=== PATIENT | male | born 1950 | race Caucasian/White ===

== ENCOUNTER 2017-06-04 02:06 | Emergency (ER) | payer OTHER ==
[~2017-06-04 02:06] MED LIST: AMPICILLIN-SULB3 GM IV; ASPIR-LOW81 MG PO; ASPIRIN81 M2 PO; AUGMENTIN 875875 MG PO; B-50 COMPLEX1 EAC1 PO; BIOTIN1 M1 PO; COLACE100 MG PO; CYCLOBENZAPRINE10 MG PO; CYMBALTA20 MG PO; DIAZEPAM 10 MG10 M2 PO; DILAUDID8 MG PO; ENOXAPARIN40 MG/0.1 SUBQ; FISH OIL 1,0001 EAC5 PO; IPRAT-ALBUT 0.5-3 ML IH; LOPRESSOR100 MG PO; MAGNESIUM250 M1 PO; MUCINEX TA600 MG/TA2 PO; NORCO 5-325 TA1 EACH PO; OMEPRAZOLE 20 M20 M1 PO; PANTOPRAZOLE SO40 M1 PO; TESSALON PERLE100 MG PO; TOPROL XL100 MG PO; TRAZODONE HCL PO; TYLENOL325 MG PO; VITAMIN D35000 UNI1 PO; ZETIA10 MG PO
[2017-06-04 03:13] LABS: HEMOGLOBIN 17.1 gm/dL (14.0-18.0); MCH 31.8 pg (26.0-34.0); MCHC 33.6 g/dL (28.0-37.0); MCV 94.8 fL (80.0-100.0); PLATELET COUNT 276 thou/uL (150-400); RBC 5.38 mil/uL (4.50-6.00); WBC 19.9 thou/uL (4.0-11.0)
[2017-06-04 03:15] LABS: MANUAL DIFF YES
[2017-06-04 03:17] LABS: CALCIUM 9.4 mg/dL (8.5-10.1); CREATININE 0.9 mg/dL (0.7-1.3); POTASSIUM 3.8 mmol/L (3.5-5.1)
[2017-06-04 03:23] LABS: ALBUMIN 3.9 g/dL (3.4-5.0); TOTAL BILIRUBIN 0.3 mg/dL (<0.1-1.0); TOTAL PROTEIN 7.1 g/dL (6.4-8.2)
[2017-06-04] MEDS ORDERED: PHENERGAN 25 MG25 M1 PO (04:09)
[2017-06-04 04:11] LABS: URINE BILIRUBIN NEGATIVE (Negative); URINE BLOOD 1+ (Negative); URINE COLOR YELLOW; URINE GLUCOSE-RANDOM* NEGATIVE (Negative); URINE KETONES NEGATIVE (Negative); URINE NITRITE NEGATIVE (Negative); URINE PROTEIN (DIPSTICK) NEGATIVE (Negative); URINE UROBILINOGEN 0.2 E.U./dl (0.2-1.0)
[2017-06-04 04:27] LABS: BACTERIA None Seen /HPF (None Seen); CASTS None Seen /LPF (None Seen); CRYSTALS None Seen /LPF (None Seen); SQUAMOUS None Seen /LPF (0-3); URINE RBC 0-2 Rare /HPF (0-2); URINE WBC None Seen /HPF (0-5)
[2017-06-04 04:30] VITALS: BP 157/96
[2017-06-04 04:46] LABS: ABSOLUTE NEUTROPHILS 7.4 thou/uL (1.4-8.2); ATYPICAL LYMPHS 5 %; TOTAL CELL COUNT 100
[2017-06-13] MEDS ORDERED: ROXICODONE15 M1 PO (12:39)
[2017-06-13] MEDS ORDERED: DIAZEPAM 10 MG10 M1 PO (12:40)
[2017-06-13] MEDS ORDERED: FLEXERIL PO (12:40)
[2017-06-13] MEDS ORDERED: VITAMIN D2000 UNIT PO (12:41)
[2017-06-13] MEDS ORDERED: REMERON15 MG PO (12:41)
[2017-06-13] MEDS ORDERED: FISH OIL 1,001000 M2 PO (12:41)
[2017-06-13] MEDS ORDERED: CELEBREX100 MG/1 C PO (12:42)
[2017-06-13] MEDS ORDERED: LOPRESSOR100 M1 PO (12:42)
[2017-06-13] MEDS ORDERED: NITROGLYCERIN0.4 MG SUBLING (12:43)
[2017-06-13] MEDS ORDERED: NEXIUM20 MG PO (12:43)
[2017-06-13] MEDS ORDERED: BIOTIN1 M1 PO (12:43)
[2017-06-13] MEDS ORDERED: MAGNESIUM SULF100 MG PO (12:44)
[2017-06-13] MEDS ORDERED: ATORVASTATIN CA40 MG PO (12:45)
== END 2017-06-04 07:58 | disposition home or self-care (01) ==
LOC: ER 02:06
PROVIDERS: Emergency Medicine
DX: R10.9 Unspecified abdominal pain (principal); G89.29 Other chronic pain; M19.90 Unspecified osteoarthritis, unspecified site; I10 Essential (primary) hypertension; I25.2 Old myocardial infarction; F10.99 Alcohol use, unspecified with unspecified alcohol-induced disorder; Z95.5 Presence of coronary angioplasty implant and graft; Z98.890 Other specified postprocedural states; Z88.5 Allergy status to narcotic agent; Z88.8 Allergy status to other drugs, medicaments and biological substances

== ENCOUNTER → 2017-06-13 | Outpatient (CLI) | payer OTHER ==
[~2017-06-13] VITALS: Ht 182.9 cm; Wt 95.3 kg
[~2017-06-13] MED LIST changes: +ATORVASTATIN CA40 MG PO; +CELEBREX100 MG/1 C PO; +DIAZEPAM 10 MG10 M1 PO; +FISH OIL 1,001000 M2 PO; +FLEXERIL PO; +LOPRESSOR100 M1 PO; +MAGNESIUM SULF100 MG PO; +NEXIUM20 MG PO; +NITROGLYCERIN0.4 MG SUBLING; +PHENERGAN 25 MG25 M1 PO; +REMERON15 MG PO; +ROXICODONE15 M1 PO; +VITAMIN D2000 UNIT PO
--- NOTE | ~2017-06-13 | HPC ---
[facility] [place] [address] PAIN MANAGEMENT CONSULTATION Name: RUBEN BEAVER Room #: REG [facility].#: [id number] Admission: 06/13/17 Attend Phys: Waqar Carr DO Discharge: Date of : 50 Report #: [id number] THIS REPORT FOR: //name// CC: Holly Ontiveros DATE OF SERVICE: 06/13/2017 HISTORY OF PRESENT ILLNESS: The patient is a very unfortunate 66-year-old gentleman seen in consultation at the request of Dr. Duarte for assistance with direction on a chronic opiate habituation and chronic pain concerns. The patient presents to pain clinic today stating it hurts "everywhere." When pressed, he says his primary pain is in his back, his hips and the front of his legs. He rates his pain a "20" on a 0-10 visual analog scale. States he has continuous, constant, burning, shooting pain. Pain is exacerbated with any and all movement. The only thing that makes it better is "hydromorphone." He had been habituated to high dose narcotics, had been on hydromorphone 8 mg 8 a day for at least [address] Duarte wisely rotated the patient to oxycodone 15 mg 6 a day, he picked that prescription up on 05/22/2017; was limited to 6 a day. This 90 mg oxycodone prescription is equivalent to 135 mg of morphine. I discussed at length with the patient today the physiologic reasons (opiate-induced hyperalgesia and lack of clinical evidenced base medicine showing improved function on higher doses of narcotic) for a weaning opiates to a more reasonable dose. I suggested that it would be hankins to continue oxycodone 15 mg 6 a day through this particular prescription; when it is time to renew his prescription on or around 06/22, I would suggest renewing oxycodone 15 mg at 5 tablets a day, i.e., 150 tablets, similarly at 30 days, around mid July, I would drop to our "goal" dose of oxycodone 15 mg 4 tablets a day. REVIEW OF SYSTEMS: Complete review of systems attached to chart and gone over with the patient. He is single. He states he does not use nicotine products and he drinks "2 beers a day." He has a history of hypertension for which he uses metoprolol. History of coronary artery disease status post endovascular stents in 2001 and again in 2005. He is on no blood thinners at this point. He does take Nexium for gastroesophageal reflux and atorvastatin ostensibly for dyslipidemia. He has chronic anxiety for which he uses mirtazapine and Valium averaging 10 mg a day. States he uses Flexeril 10 mg 2 tablets at bedtime for sleep and he recently started on Celebrex 100 mg a day. I think Celebrex is a reasonable drug for some chronic migratory arthralgias, though there is obviously caution for [address] [address] PAIN MANAGEMENT CONSULTATION Name: RUBEN BEAVER Room #: REG BENJIE Fernandez#: [id number] Admission: 06/13/17 Attend Phys: Waqar Carr DO Discharge: Date of : 50 Report #: [id number] chronic current use of any NSAID and patients with diagnosis of coronary artery disease. The patient prior had a lumbar laminectomy in 1988 in [place] for "sciatic" type symptoms. The patient notes he did have good resolution of his radicular symptoms. In fact he is not noting any significant radicular symptoms at present, simply axial back pain. He tells me he has been off work for 15 years. States he is on disability for "chronic pain." Axial back pain. 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 The patient notes his pain impact score at 70 out of 70. PHYSICAL EXAMINATION: VITAL SIGNS: Reveal a 6 feet tall, 210 pound gentleman with a BMI of 28.5 kilograms per meter squared. Blood pressure is 142/97, pulse 107, respirations 20. HEENT: Pupils are pinpoint and sluggishly reactive. Extraocular muscles are intact. He does have a little lateral gaze nystagmus. NEUROLOGIC: He is generally alert and oriented to person, place and time, judged to be a reasonable historian. NECK: Cervical range of motion is full. Thyroid is unremarkable. Upper extremity strength is preserved. HEART: Regular rhythmical without murmur. LUNGS: Clear to auscultation. MUSCULOSKELETAL: Modestly endomorphic build. Rises from chair using armrest. Does have modest thoracoscoliosis. Lumbar flexion is good to 90 degrees. Some diffuse low back tenderness. No discrete trigger points noted. Lower extremity strength is symmetric. Straight leg raise is negative. Patellar and Achilles reflexes are diminished, but symmetric. Straight leg raise is negative. Passive rotation of the hips is unremarkable. There is no ballottable edema in knees. Deviation of the patella does not cause crepitance or pain. Anterior and posterior cruciate as well as the medial and lateral collateral ligaments are all intact. He is tender over the SI joint and has modestly positive Arcadio test bilaterally. IMAGING: I did get x-rays of the patient's hips and knees. They have not been read yet by the radiologist, but I did personally view the images. There does appear to be preserved joint space in all joints. No dramatic erosion of the surfaces. They actually appear pretty clear. Certainly, no significant arthritis in the hips or knees. He did have an MRI done at [facility], 07/24/2016. Does note lumbar scoliosis with chronic degenerative changes throughout the lumbar spine. Has a mild lateral translation of the L1 to the right of L2, [facility] [address] [place] [address] PAIN MANAGEMENT CONSULTATION Name: RUBEN BEAVER Room #: REG [facility].#: [id number] Admission: 06/13/17 Attend Phys: Waqar Carr DO Discharge: Date of : 50 Report #: [id number] retrolisthesis of L3 on L4. L4-L5 notes left lateral recess stenosis with severe neural foraminal stenosis at this level. This does not correlate with radicular findings, left L4 on clinical exam (negative neural tensioning, preserved strength in hip flexion and lower extremity extension and patellar reflex). Does have some bilateral L5-S1 lateral recess stenosis with moderate neural foraminal stenosis. Again, this does not correlate with significant radicular symptoms. ASSESSMENT: Chronic opiate habituation and tolerance in a gentleman with chronic pain syndrome. Subjective axial back pain, does have a component of thoracolumbar scoliosis, likely component of some spondylosis. RECOMMENDATIONS: Again prolonged talk with the patient as noted in the body of the chief complaint. I agree with Dr. Duarte's rotation from hydromorphone to oxycodone. He has done this reasonably well, though he did present to the ER on 06/04/2017 complaining of some abdominal pain. It sounds like he may have had little opiate withdrawal symptoms. Nonetheless, he is stable currently on 90 mg of oxycodone a day (equivalent to 135 mg of morphine a day). Would strongly recommend at his next prescription renewal (mid June, last prescription was picked up 05/22/2017) drop the oxycodone 15 mg dose to 5 a day, 150 tablets. Subsequent renewal should be our target dose of 4 oxycodone tablets a day, 60 mg of oxycodone equivalent to 90 mg of morphine. Strongly recommend the patient follow up with either the [facility] or psychologist with expertise in pain management; he is given contact information for multiple practitioners including JEANNA Canchola, with request for biofeedback and distraction techniques for management. We discussed with the patient today about therapeutic options and activity. He has been a swimmer in the past. He has accessed to pool 12 months a year. I strongly recommend he start back with water aerobics simply walking in chest-high water for 15-20 minutes and transitioning to swimming. I think getting a little better core strength, range of motion will help with his overall functional status. The patient may benefit from addition of clonidine 0.1 at bedtime if he is having trouble with any anxiety from opiate withdrawal. Ultimately I would like to see him wean his opiate use even further. May benefit from addition of a central alpha-2 muscle relaxant (tizanidine 4 mg up to t.i.d. for spasm) and also for chronic widespread ill-defined pain, Cymbalta and Lyrica have shown some efficacy, I would consider starting Cymbalta 30-60 mg as an adjuvant medication once he achieves his target dose of oxycodone 15 mg 4 a day. Thank you for allowing me to participate in the patient's care. He left the office today with [facility] information [facility] and for JEANNA Canchola. I told him I would be standing back to Dr. Duarte my [address] [address] PAIN MANAGEMENT CONSULTATION Name: RUBEN BEAVER Room #: NATACHA Fernandez#: [id number] Admission: 06/13/17 Attend Phys: Waqar Carr DO Discharge: Date of : 50 Report #: [id number] recommendations for continued weaning, she has already made the initial hard first step of rotating from hydromorphone to oxycodone. Now, we just need to get down to a more reasonable dose. The patient needed to take some responsibility for increasing physical activity and I think he would vastly benefit from psychological counseling to help with coping skills, distraction, pain management and biofeedback. If at 90 marion-equivalents of morphine (60 mg of oxycodone), patient is unable to wean futher, he may benefit from referral to an instrumentation specialist, I would consider him a good candidate for suboxone therapy, but again, I would defer to the addiction specialists. <ELECTRONICALLY SIGNED> By: Waqar Carr DO 06/16/17 [id number] Waqar Carr DO /nt
[2017-06-13 12:52] VITALS: BP 142/97
== END ==
LOC: PAIN 06:49
DX: M17.0 Bilateral primary osteoarthritis of knee (principal); M25.552 Pain in left hip

== ENCOUNTER 2018-10-24 22:41 | Emergency (ER) | payer OTHER ==
[~2018-10-24] VITALS: Ht 185.4 cm; Wt 86.2 kg
[2018-10-25 02:31] VITALS: BP 187/98
== END 2018-10-25 02:34 | disposition home or self-care (01) ==
LOC: ER 22:41
DX: S01.01XA Laceration without foreign body of scalp, initial encounter (principal); Z88.5 Allergy status to narcotic agent; Z88.8 Allergy status to other drugs, medicaments and biological substances; W19.XXXA Unspecified fall, initial encounter; Y93.89 Activity, other specified; Y92.89 Other specified places as the place of occurrence of the external cause; Y99.8 Other external cause status